=== PATIENT | female | born 1995 | race Hispanic/Latino ===

== ENCOUNTER 2024-06-28 13:29 | Day surgery (SDC) | payer OTHER ==
[2024-06-28 13:49] VITALS: BMI 25.5
[2024-06-28 15:23] LABS: Bilirubin Neg (Negative); Blood, Urine Negative (Negative); Clarity Clear (Clear); Glucose, Urine (Dipstick) Normal (Negative); Ketone, Urine Negative (Negative); Leukocyte 25 (Negative); Nitrite Negative (Negative); Protein, Urine (Dipstick) Negative (Neg-Trace); Urobilinogen Normal mg/dL (Less than 2)
[2024-06-28 15:55] LABS: Bacteria/HPF Rare-Few HPF (None Seen); CAUTI Indications for Culture Pregnancy; RBC/HPF 0-3 HPF (0-3); Squamous Epithelial 0-3 HPF (0-3); Urine Culture Reflex No No; WBC/HPF 0-3 HPF (0-3)
[2024-06-28 15:57] LABS: Urine Culture Reflex Yes Yes
== END 2024-06-28 17:30 | disposition home or self-care (01) ==
LOC: CSHLD/OP 13:29
PROVIDERS: ATTEND Family Medicine
DX: O47.03 False labor before 37 completed weeks of gestation, third trimester (principal); O36.8130 Decreased fetal movements, third trimester, not applicable or unspecified; Z79.899 Other long term (current) drug therapy; Z3A.36 36 weeks gestation of pregnancy
CPT/HCPCS: 76819; 81001; 87086; 99282

== ENCOUNTER 2024-07-18 18:00 | Inpatient (IN) | payer MEDICAID, OTHER ==
[2024-07-18 21:29] VITALS: BMI 26.9
[2024-07-18] MEDS ORDERED: Diphenoxylate HCl/Atropine Tablet PO PRN (23:31)
[2024-07-18] MEDS ORDERED: fentaNYL 50 mcg/mL 1 mL Vial SLOW IVP PRN (23:31)
[2024-07-18] MEDS ORDERED: hydrALAZINE 20 MG/ML VIAL SLOW IVP PRN (23:31)
[2024-07-18] MEDS ORDERED: Carboprost 250 MCG/ML AMP IM PRN (23:31)
[2024-07-18] MEDS ORDERED: Ondansetron PF 4 MG/2 ML Vial IVP PRN (23:31)
[2024-07-18] MEDS ORDERED: Tranexamic Acid 1,000 MG/10 ML VIAL IVP PRN (23:31)
[2024-07-18] MEDS ORDERED: Promethazine HCl 25 MG/ML VIAL IM PRN (23:31)
[2024-07-18] MEDS ORDERED: Ibuprofen 800 MG TAB PO PRN (23:31)
[2024-07-18] MEDS ORDERED: Acetaminophen 500 MG TAB PO PRN (23:31)
[2024-07-18] MEDS ORDERED: Methylergonovine 0.2 MG/ML VIAL IM PRN (23:31)
[2024-07-18] MEDS ORDERED: HYDROcodone/Acetaminophen 5/325 mg Tablet PO PRN (23:31)
[2024-07-18] MEDS ORDERED: Misoprostol 200 MCG TAB PR PRN (23:31)
[2024-07-18] MEDS ORDERED: Lidocaine 1% (PF) 30 ML VIAL SC PRN (23:31)
[2024-07-18 23:45] LABS: Hematocrit 35.8 % (34.9-44.5); Hemoglobin 12.4 g/dL (12.0-15.5); Mean Corpuscular HGB CONC 34.6 g/dL (32.0-36.0); Mean Corpuscular Hemoglobin 31.1 pg (27.0-33.0); Mean Corpuscular Volume 89.7 fL (81.6-98.3); Mean Platelet Volume 10.6 fL (7.4-10.4); Platelet Count 219 10x3/uL (150-450); RBC Distribution Width 12.8 % (11.5-14.5); Red Blood Cell (RBC) Count 3.99 10x6/uL (3.90-5.03); White Blood Cell (WBC) Count 9.1 10x3/uL (3.5-10.5)
[2024-07-18] MEDS ORDERED: Oxytocin 30 units/NS 500 ML 500 ML IV SCH ×3 (23:45)
[2024-07-18] MEDS: Lactated Ringer's 1,000 ML IV SCH (23:45)
[2024-07-19 00:27] LABS: Syphilis Antibody Nonreactive (Nonreactive); Syphilis Antibody Index 0.03 S/CO (<1.00 Non-Reactive)
[2024-07-19 00:28] LABS: Hep B Surf Ag - L&D Non-Reactive S/CO (NonReactive)
[2024-07-19] MEDS: Misoprostol 100 MCG TAB PO SCH (00:42)
[2024-07-19 00:59] LABS: HIV (1/2) Antibody/Antigen Non-Reactive (NonReactive); HIV 1/2 INDEX 0.09 S/CO (<1.00)
[2024-07-19] MEDS ORDERED: Benzocaine-Menthol 82.5 ML CAN TOP PRN (13:28)
[2024-07-19] MEDS ORDERED: HYDROcodone/Acetaminophen 5/325 mg Tablet PO PRN (13:28)
[2024-07-19] MEDS ORDERED: diphenhydrAMINE 25 MG CAP PO PRN (13:28)
[2024-07-19] MEDS ORDERED: hydrALAZINE 20 MG/ML VIAL SLOW IVP PRN (13:28)
[2024-07-19] MEDS ORDERED: Milk Of Magnesia 30 ML UDCUP PO PRN (13:28)
[2024-07-19] MEDS ORDERED: Boostrix 0.5 ML (Tdap) VIAL (>/=7 yrs of age) IM ONE (13:28)
[2024-07-19] MEDS ORDERED: Bisacodyl 10 MG SUPP PR PRN (13:28)
[2024-07-19] MEDS ORDERED: Ondansetron PF 4 MG/2 ML Vial IVP PRN (13:28)
[2024-07-19] MEDS ORDERED: Promethazine HCl 25 MG/ML VIAL IM PRN (13:28)
[2024-07-19] MEDS ORDERED: Lanolin Ointment 7 GM TUBE TOP PRN (13:28)
[2024-07-19] MEDS: Ibuprofen 800 MG TAB PO SCH (16:03)
[2024-07-19] MEDS: Ferrous Sulfate 325 MG TAB PO SCH (16:03)
[2024-07-19] MEDS: HYDROcodone/Acetaminophen 5/325 mg Tablet PO PRN (16:10)
[2024-07-19] MEDS: Docusate 100 MG CAP PO SCH (21:54)
[2024-07-20] MEDS: Prenatal Vitamin 1 TAB PO SCH (09:24)
[2024-07-20 11:09] VITALS: BP 103/57; TEMP 98.1
== END 2024-07-20 14:55 | disposition home or self-care (01) | DRG 807 ==
LOC: CSHLD 21:09 → CSHPP 07-19 15:17
PROVIDERS: ADMIT Family Medicine; ATTEND Family Medicine
PROC: 10E0XZZ Delivery of Products of Conception, External Approach (ICD-10-PCS; principal; 2024-07-19)
PROC: 0KQM0ZZ Repair Perineum Muscle, Open Approach (ICD-10-PCS; 2024-07-19)
PROC: 10907ZC Drainage of Amniotic Fluid, Therapeutic from Products of Conception, Via Natural or Artificial Opening (ICD-10-PCS; 2024-07-19)
DX: O70.1 Second degree perineal laceration during delivery (principal); Z37.0 Single live birth; Z3A.40 40 weeks gestation of pregnancy
CPT/HCPCS: 36415; 51702; 85027; 86780; 86850; 86900; 86901; 87340; 87389; J7120